=== PATIENT | male | born 1985 | race Caucasian/White ===

== ENCOUNTER 2024-10-17 20:26 | Emergency (ER) | payer OTHER ==
[2024-10-17] MEDS ORDERED: Tdap Vaccine 0.5 ML SYR (Adult Vaccine) IM ONE (21:05)
[2024-10-17] MEDS ORDERED: Bacitracin Zinc 14 GM TUBE T ONE (21:10)
== END 2024-10-17 21:25 | disposition home or self-care (01) ==
LOC: ED 20:26 → EDSEX 20:33 → ED 21:25
DX: S61.211A Laceration without foreign body of left index finger without damage to nail, initial encounter (principal); W31.89XA Contact with other specified machinery, initial encounter; Y93.89 Activity, other specified; Y92.89 Other specified places as the place of occurrence of the external cause; Y99.8 Other external cause status